=== PATIENT | female | born 1945 | race Caucasian/White ===

== ENCOUNTER 2024-10-30 15:26 | Emergency (ER) | payer MEDICARE, SELFPAY ==
[2024-10-30] VITALS (7 sets, daily range): BP systolic 78–136; BP diastolic 38–74; BMI 26.2
--- NOTE | 2024-10-30 16:03 | ED.GENMED ---
History of Present Illness
General
Chief Complaint: Fall
Source: patient
Exam Limitations: none
Time Seen by Provider: 10/30/24 15:30
Nursing documentation reviewed up to this point in time: agreed with
History of Present Illness
History of Present Illness:
Patient is an 79-year-old female with history depression who presents to the emergency department via EMS from [facility] after 2 unwitnessed falls today. Patient reports slipping on her bed last night/early this morning and landing
on her bottom. At that time�she denies any head strike. However�there was apparently a second incident today where patient was found on the ground after suspected fall from her bed. This fall was unwitnessed and patient was asleep at the time.
Per my assessment�patient repeatedly said states that she she is asymptomatic, feels fine, and would like to be discharged home. She specifically denies any headache, neck pain, back pain. She has no abdominal pain. No groin paresthesias, loss of
bowel/bladder control. No numbness/tingling in lower extremities or weakness.
Patient denies any recent fever or viral symptoms. No lightheadedness, chest pain, shortness of breath. No dysuria.
Patient states she struggles with depressive thoughts and has passive thoughts of suicide however states that she would never act on these thoughts.
Review of Systems
Review of Systems
Allergies reviewed?: Yes
All Other Systems: ROS reviewed and negative except as documented in HPI and ROS
Phy Exam
Physical Exam
Physical Exam:
Vitals: Patient's vital signs are stable. Afebrile
General: Patient is well appearing, no acute distress. Nontoxic appearing
Skin: Warm and dry, no rashes or lesions
Head: Normocephalic, atraumatic
Eyes: Sclera nonicteric. EOMs intact. Pupils equal round and reactive to light bilaterally. No nystagmus.
Throat: Protecting airway
Neck: Normal ROM, no cervical spine tenderness, no meningismus
Cardiac: Regular rate and rhythm, no murmurs. No chest wall tenderness.
Pulm: Normal respiratory effort, no wheezes, rales, rhonchi heard on exam
.
Abdomen: Abdomen soft and nontender.
Extremities: Bilateral lower extremities atraumatic and nontender with full range of motion. Ecchymosis noted to right shoulder without pain or any limited range of motion. Left shoulder with chronic deformity and limited abduction however
nontender. Palpable distal pulses bilaterally.
Neuro: AAOx3. Grossly intact.
Psychiatric: Normal affect.
Course
Orders/Labs/Results
Orders:
Orders
10/30/24 15:54
Electrocardiogram (*1) Urgent
Reason for Study: Other
Other Reason for Exam: unwitnessed fall
Cervical Spine wo Contrast CT [CT Cervical Spine W/o Iv Contr] Urgent
Comment:
Reason For Exam: unwitnessed fall
EKG- Treatment ONCE
10/30/24 15:55
CT Head W/o Iv Contrast Urgent
Comment:
Reason For Exam: unwitnessed fall
10/30/24 16:02
Crisis Consult Urgent
Reason for Consult: depression, passive SI
10/30/24 16:12
Complete Blood Count/With Diff Urgent
Comprehensive Metabolic Panel Urgent
10/30/24 16:16
Urinalysis Reflex To Culture Urgent
Date Specimen was Collected: 10/30/24
Time Specimen was Collected: 16:13
Urine Microscopic Reflex Cult Urgent
Urine Culture Urgent
MARYANA Source: U
Specimen Description:
Date Specimen was Collected: 10/30/24
Time Specimen was Collected: 16:13
10/30/24 19:09
Cephalexin Monohydrate [Keflex] 500 mg PO NOW STA
10/30/24 19:26
Fosfomycin [Monurol] 3 gm PO ONCE ONE
Abnormal Lab Results
10/30/24 10/30/24
16:12 16:16
RBC 2.88 L 10^6/uL
(4.20-5.40)
Hgb 7.6 L g/dL
(12.0-16.0)
Hct 24.0 L %
(37.0-47.0)
MCH 26.4 L pg
(27.0-31.0)
MCHC 31.7 L g/dL
(33.0-37.0)
RDW 14.8 H %
(11.5-14.5)
Plt Count 501 H 10^3/uL
(130-400)
Absolute Neuts (auto) 6.9 H 10^3/uL
(1.4-6.5)
Absolute Monos (auto) 0.9 H 10^3/uL
(0.1-0.6)
Lymphocytes % 13.1 L %
(20.5-51.1)
Monocytes % 10.1 H %
(1.7-9.3)
Sodium 130 L mmol/L
(135-145)
Potassium 3.4 L mmol/L
(3.5-5.1)
BUN 19 H mg/dl
(7-17)
Total Protein 5.5 L g/dl
(6.3-8.2)
Albumin 3.3 L g/dl
(3.5-5.0)
Urine Ketones 1+ A
(Negative)
Urine Nitrite (Reflex) Positive A
(Negative)
Leukocyte Esterase Rfl 1+ A
(Negative)
Urine WBC (Reflex) 26-30 A /HPF
(0-5)
Urine Bacteria (Reflex) Many A
(Negative)
Urine Albumin (Reflex) 1+ A
(Neg - Trace)
10/30/24 16:12
10/30/24 16:12
Vital Signs
Initial and Last Documented VS:
Initial Vital Signs
Temp Pulse Resp BP Pulse Ox
97.9 F 73 20 132/68 97
10/30/24 15:30 10/30/24 15:30 10/30/24 15:30 10/30/24 15:30 10/30/24 15:30
Last Documented Vital Signs
Temp Pulse Resp BP Pulse Ox
97.9 F 83 25 124/53 95
10/30/24 16:00 10/30/24 19:01 10/30/24 19:01 10/30/24 19:01 10/30/24 19:01
MDM/Problems Addressed
Differential Diagnosis Includes:
Not limited to: Acute dehydration, electrolyte abnormality, UTI, cardiac arrhythmia, etc.
MDM/Problems Addressed:
79-year-old female presenting after unwitnessed fall at [facility] 3 8 this morning. She has no complaints is not on any blood thinners. Vital signs as above. On exam�patient well-appearing, in no distress. She is alert and oriented without
any focal neurologic deficits. No evidence of head or neck trauma. Abdomen benign. She does have a chronic deformity of her left shoulder after fracture about 1 year ago also did note a ecchymosis to her right shoulder. Bilateral lower
extremities atraumatic tender with full range of motion.
Given unwitnessed nature of fall�will obtain labs, EKG, UA. Will check head CT, cervical spine CT. Will obtain x-ray of right shoulder given new ecchymosis and mild tenderness.
Update: Labs revealed anemia with hemoglobin of 7.6 which patient states is chronic. She states she follows with her court manager and her hemoglobin typically is around 8. She has had lengthy workup for GI bleeding which has been negative and she
denies any recent changes in stools. She denies any lightheadedness, shortness of breath or dizziness. Chemistry reveals mild hyponatremia. EKG not. CT head/cervical spine about acute traumatic injuries. Urine does appear infected, positive
nitrate, 1+ leukocyte esterase, and 26�30 WBCs with many bacteria�this was a catheterized specimen.
Patient declines x-ray of right shoulder since she has no pain and is aware of possible missed diagnoses.
Ultimately�no evidence of acute traumatic injuries on exam. Lab abnormalities including hemoglobin appears stable for patient and she has follow-up with her primary care provider tomorrow. She did receive IV fluids. Offered admission, however
patient is adamant that she feels completely at her baseline and would prefer to be discharged home. Will start patient on antibiotic for UTI. She has very questionable allergy to penicillin with not collection of what reaction this was�will give
dose of fosfomycin in ED. Patient discharged home with daughter in stable condition. Strict return precautions discussed.
Chronic conditions affecting care:
N/A
Acute Exacerbation and/or Progression of Chronic Illness:
N/A
*Radiology
Radiology exam reviewed: radiology read reviewed
*Pulse Oximetry
SaO2: 97
Oxygen Mode of Delivery: Room air
Patient hypoxic: no
*EKG
Interpreted by ED Provider?: Yes
EKG Intrepretation Date: 10/30/24
Interpretation: abnormal
Comparison EKG: no comparison EKG present
Heart Rate: 80
Rate: normal
Rhythm: sinus
[place]: normal axis
Interval: long QT
QRS Pattern: normal QRS
Ischemia: no ischemia
*Inverted Block Operator Interpretation
Rate: normal
Interpretation: normal
Heart Rate: 70
Rhythm: sinus
*Critical Care Note
Total Time (30-74mins, 75-104mins- exclusive of procedures): Not Applicable
ED Attending Note
-
Portions of this chart may have been created with voice recognition software.� Occasional wrong word or��sound alike� substitutions may have occurred due to the inherent limitations of voice recognition software.
Discharge Plan
Departure
Patient Disposition: Home (Routine Discharge)
Date of Disposition: 10/30/24
Time of Disposition: 19:10
Patient with high blood pressure during this ER visit?: Yes
Condition: Good
Discharge Problem:
Unwitnessed fall, Acute UTI, Anemia
Instructions: Urinary tract infection in adults - ED (DC), Anemia in adults, possibly from low iron - ED (DC), BLOOD PRESSURE
Referrals:
Beni Mcneil MD [Family Provider, Family Practice] - Follow up in 5-7 days
Activity Restrictions/Additional Instructions:
RETURN TO THE EMERGENCY DEPARTMENT WITH ANY FEVERS, ABDOMINAL PAIN, NAUSEA/VOMITING, WEAKNESS OR LIGHTHEADEDNESS, DARK OR BLOODY STOOLS, SHORTNESS OF BREATH, WORSENING IN CURRENT SYMPTOMS, OR ANY OTHER CONCERNS
- As discussed�your imaging of your head and neck showed no acute traumatic injuries. However there was a small meningioma noted on the head CT. Please follow-up with your primary care provider in regards to this and determine if any further
imaging is necessary.
Your lab work revealed significant anemia with a hemoglobin of 7.6�which you state is around your baseline. Please follow closely with your primary care for repeat lab work as you may require blood transfusion.
- Your urine showed evidence of infection. You were given an oral dose of antibiotics in the emergency department.
- Follow-up with your primary care provider for further evaluation/management to ensure that your symptoms are improving.
Monitor your symptoms closely and return to the emergency department with any acute worsening/new symptoms or any other concerns
Interventions
Interventions:
*Risk Screen - Suicide Last Done: 10/30/24 15:37
*General Assessment Last Done: 10/30/24 15:37
*Neglect/Abuse Screening Last Done: 10/30/24 15:37
*ED- Fall Risk Assessment Last Done: 10/30/24 15:37
*ED COVID-19 Vaccine History Last Done: 10/30/24 15:37
*Nursing Disposition Last Done: 10/30/24 19:53
ED-Musculoskeletal Assessment Last Done: 10/30/24 15:37
ED- Neurological Assessment Last Done: 10/30/24 15:37
ED-Skin Assessment Last Done: 10/30/24 16:37
Discharge Date and Time
Discharge Date/Time: 10/30/24 19:54
Print Language: LAO
[2024-10-30 16:24] LABS: Hematocrit 24.0 % (37.0-47.0); Hemoglobin 7.6 g/dL (12.0-16.0); Mean Corp Hgb Conc. 31.7 g/dL (33.0-37.0); Mean Corpuscular Volume 83.3 fL (81.0-99.0); Nucleated Red Blood Cells % 0 %; Platelet Count 501 10^3/uL (130-400); Red Cell Dist. Width 14.8 % (11.5-14.5)
[2024-10-30 16:36] LABS: ALT (SGPT) < 10 U/L (0-35); AST (SGOT) 27 U/L (14-36); Albumin 3.3 g/dl (3.5-5.0); Alkaline Phosphatase 108 U/L (38-126); Blood Urea Nitrogen 19 mg/dl (7-17); Calcium 8.4 mg/dl (8.4-10.2); Carbon Dioxide 28 mmol/L (22-30); Chloride 99 mmol/L (98-107); Estimated Creatinine Clearance 66 ml/min; Glucose 71 mg/dl (70-99); Potassium 3.4 mmol/L (3.5-5.1); Sodium 130 mmol/L (135-145); Total Protein 5.5 g/dl (6.3-8.2); eGFR > 60.00
[2024-10-30 16:42] LABS: Urine Character Clear (Clear)
[2024-10-30 16:50] LABS: Urine Red Blood Cell 0-2 /HPF (0-2); Urine Squamous Cell 0-2 /LPF (Few); Urine White Cell 26-30 /HPF (0-5)
[2024-10-30] MEDS: MONUROL 3 GM PO (19:35)
== END 2024-10-30 19:54 | disposition home or self-care (01) ==
LOC: EMR 15:26
PROVIDERS: Physician Assistant; EMERGENCY PHYSICIAN Emergency Medicine; FAMILY PHYSICIAN Family Medicine
DX: N39.0 Urinary tract infection, site not specified (principal); D64.9 Anemia, unspecified; E87.1 Hypo-osmolality and hyponatremia; R03.0 Elevated blood-pressure reading, without diagnosis of hypertension; F32.A Depression, unspecified
CPT/HCPCS: 99284; 70450; 72125; 80053; 81003; 81015; 85025; 87077; 87086; 87186; 93005

== ENCOUNTER 2024-11-06 16:51 | Inpatient (IN) | payer MEDICARE, SELFPAY ==
[2024-11-05] VITALS (8 sets, daily range): BP systolic 97–115; BP diastolic 38–81; BMI 25.2; BMI 25.7
[2024-11-05 19:00] LABS: Hematocrit 25.5 % (37.0-47.0); Hemoglobin 8.3 g/dL (12.0-16.0); Mean Corp Hgb Conc. 32.5 g/dL (33.0-37.0); Mean Corpuscular Volume 80.4 fL (81.0-99.0); Nucleated Red Blood Cells % 0 %; Platelet Count 503 10^3/uL (130-400); Red Cell Dist. Width 14.8 % (11.5-14.5)
[2024-11-05 19:15] LABS: ALT (SGPT) < 10 U/L (0-35); AST (SGOT) 21 U/L (14-36); Albumin 3.7 g/dl (3.5-5.0); Alkaline Phosphatase 127 U/L (38-126); Blood Urea Nitrogen 29 mg/dl (7-17); Calcium 9.0 mg/dl (8.4-10.2); Carbon Dioxide 29 mmol/L (22-30); Chloride 91 mmol/L (98-107); Estimated Creatinine Clearance 40 ml/min; Glucose 82 mg/dl (70-99); Potassium 3.7 mmol/L (3.5-5.1); Sodium 126 mmol/L (135-145); Total Protein 5.9 g/dl (6.3-8.2); eGFR 56.60
--- NOTE | 2024-11-05 21:41 | ED.GENMED ---
History of Present Illness
<Vannesa Lafleur ADMINISTRATIVE ASSISTANT OFFICE MANAGER - Last Filed: 11/05/24 23:16>
General
Chief Complaint: Fall
Source: patient and ambulance crew
Exam Limitations: altered mental status
Time Seen by Provider: 11/05/24 20:47
Nursing documentation reviewed up to this point in time: agreed with
History of Present Illness
History of Present Illness:
79-year-old female with history of prolapsed uterus, anxiety/depression, lives in independent living at [place]. She has had multiple falls in the past few days and was seen here on 10/30 for a fall and diagnosed with a urinary tract infection and
given a dose of fosfomycin. She went back to [place] and according to EMS they told them that she had 2 falls today. Patient admits that she fell twice today, The first fall happened at home when she tripped over a chair. She does not recall
significant pain from the falls and denies any major injuries.
The patient has no chest pain, difficulty breathing, or abdominal pain. She has chronic pain in her knees.
EMS reports that the people at [facility] are trying to move her to a more observational area due to her numerous falls recently.
Past History
<Vannesa Lafleur, ADMINISTRATIVE ASSISTANT OFFICE MANAGER - Last Filed: 11/05/24 23:16>
Past History
ED Past Medical History: Psychiatric (Anxiety/depression) and Other (She does have a prolapsed uterus)
Review of Systems
<Vannesa Lafleur ADMINISTRATIVE ASSISTANT OFFICE MANAGER - Last Filed: 11/05/24 23:16>
Review of Systems
Allergies reviewed?: Yes
All Other Systems: ROS reviewed and negative except as documented in HPI and ROS
Respiratory: Denies trouble breathing
Cardiac: Denies chest pain
ABD/GI: Denies abdominal pain, nausea, vomiting or diarrhea
: Denies dysuria
Musculoskeletal: Reports joint pain (Chronic bilateral knee pain)
Phy Exam
<Vannesa Lafleur, ADMINISTRATIVE ASSISTANT OFFICE MANAGER - Last Filed: 11/05/24 23:16>
Physical Exam
Physical Exam:
GENERAL: No acute distress. A&Ox3.
CONSTITUTIONAL: Afebrile.
EYES: clear, conjunctivae normal
ENMT: moist mucus membranes, Pharynx nl
RESPIRATORY: Regular respirations, nonlabored, lungs clear.
CARDIOVASCULAR: Regular rate and rhythm, no murmurs, no rubs.
GI: Soft, nontender, normal BS
MUSCULOSKELETAL: No spinal bony tenderness. Moving all extremities well, bilateral knee pain which she says is chronic. Moves with ease. Well perfused.
SKIN: Warm, dry, pink, mild old ecchymosis under left eye, small area on right breast, reddish ecchymosis on right buttock. Both lower extremities are warm and erythematous, right greater than left
PSYCH: Normal mood and affect. She does have hallucinations, she points to the corner of the room and says do see that lady over there with the blonde hair when there is no one there. At other times she seems very cogent and oriented. Well kept,
interactive.
NEUROLOGIC: Awake, alert and oriented. No focal neurological deficits
Course
<Vannesa Lafleur, ADMINISTRATIVE ASSISTANT OFFICE MANAGER - Last Filed: 11/05/24 23:16>
Orders/Labs/Results
Orders:
Orders
11/05/24 18:37
CMP [Comprehensive Metabolic Panel] Urgent
Complete Blood Count/With Diff Urgent
Ferritin Urgent
Comment: ADD ON
Folate Urgent
Comment: ADD ON
Free T4 Urgent
Iron Urgent
Comment: ADD ON
Serum Osmolality Urgent
Comment: ADD ON
TSH Reflex To Free T4 Urgent
Comment: ADD ON
Total Iron Binding Urgent
Comment: ADD ON
Vitamin B12 Urgent
Comment: ADD ON
11/05/24 20:50
Add On- LAB Urgent
Tests Added?: TSH reflex T4
11/05/24 22:02
Osmolality, Random Urine Urgent
Date Specimen was Collected: 11/05/24
Time Specimen was Collected: 20:52
Urinalysis Reflex To Culture Urgent
Date Specimen was Collected: 11/05/24
Time Specimen was Collected: 20:52
Urine Microscopic Reflex Cult Urgent
Urine Sodium Urgent
Date Specimen was Collected: 11/05/24
Time Specimen was Collected: 20:52
Urine Culture Urgent
MARYANA Source: U
Specimen Description:
Date Specimen was Collected: 11/05/24
Time Specimen was Collected: 20:52
11/05/24 22:07
CeFAZolin 1 GRAM [Ancef] 1 gram in 5 ml IV NOW
11/05/24 22:20
Add On- LAB Stat
Tests Added?: serum osmolality
11/05/24 22:21
Add On- LAB Stat
Tests Added?: B12, ferritin, folate, TIBC, iron
11/05/24 22:23
Admit/Transfer Patient As Directed
Co-Sign Provider:
Level of Care: Observation services
Assign to:: Medical/Surgical
Physician / Group: wally
Diagnosis: cellultis
Reason for Hospitalization: cellulitis
Expected length of stay greater than two midnights?: Yes
ELOS- Estimated Length of Stay in days: 3
I certify the patient meets the requirements for IP care: Yes
PRN Pain Medication Management As Directed
May give lesser potent ordered pain med per pt: Yes
preference::
Protocol:: Medication orders for pain may be administered in a
manner that supports deferring to patient preference
when the pt is:
- Requesting an ordered lesser potent pain medication.
Least to most potent pain medications are defined
as: acetaminophen < NSAID < tramadol < opioids
(morphine, oxycodone, hydromorphone).
- Requesting a lesser dose of the same medication IF
ORDERED.
- Requesting a less intrusive route of administration
if both routes are prescribed by the provider (PO <
IV).
11/05/24 22:24
Code Status As Directed
Resuscitation Status: Full Code
Abnormal Lab Results
11/05/24 11/05/24
18:37 22:02
WBC 12.3 H 10^3/uL
(4.8-10.8)
RBC 3.17 L 10^6/uL
(4.20-5.40)
Hgb 8.3 L g/dL
(12.0-16.0)
Hct 25.5 L %
(37.0-47.0)
MCV 80.4 L fL
(81.0-99.0)
MCH 26.2 L pg
(27.0-31.0)
MCHC 32.5 L g/dL
(33.0-37.0)
RDW 14.8 H %
(11.5-14.5)
Plt Count 503 H 10^3/uL
(130-400)
Abs Immat Gran (auto) 0.1 H 10^3/uL
(0-0.05)
Absolute Neuts (auto) 9.3 H 10^3/uL
(1.4-6.5)
Absolute Monos (auto) 1.2 H 10^3/uL
(0.1-0.6)
Immature Gran % 0.7 H %
(0-0.5)
Neutrophils % 75.5 H %
(42.2-75.2)
Lymphocytes % 12.1 L %
(20.5-51.1)
Monocytes % 10.1 H %
(1.7-9.3)
Sodium 126 L mmol/L
(135-145)
Chloride 91 L mmol/L
(98-107)
BUN 29 H mg/dl
(7-17)
Serum Osmolality 270 L mOsm/kg
(275-300)
Iron 27 L ug/dl
(37-170)
% Saturation 8 L %
(20-50)
Alkaline Phosphatase 127 H U/L
(38-126)
Total Protein 5.9 L g/dl
(6.3-8.2)
TSH (Reflex) 0.11 L uIU/ml
(0.47-4.68)
Urine Nitrite (Reflex) Positive A
(Negative)
Leukocyte Esterase Rfl 1+ A
(Negative)
Urine WBC (Reflex) 60-70 A /HPF
(0-5)
Urine Bacteria (Reflex) Many A
(Negative)
Urine Albumin (Reflex) 1+ A
(Neg - Trace)
11/05/24 18:37
11/05/24 18:37
Vital Signs
Initial and Last Documented VS:
Initial Vital Signs
Temp Pulse BP Pulse Ox
98.2 F 70 107/81 97
11/05/24 18:14 11/05/24 18:14 11/05/24 18:14 11/05/24 18:14
Last Documented Vital Signs
Temp Pulse Resp BP Pulse Ox
98.2 F 72 19 107/81 97
11/05/24 18:14 11/05/24 18:30 11/05/24 18:30 11/05/24 18:18 11/05/24 21:43
<Dada Kyle, DO - Last Filed: 11/05/24 22:16>
Orders/Labs/Results
Orders:
Orders
11/05/24 18:37
CMP [Comprehensive Metabolic Panel] Urgent
Complete Blood Count/With Diff Urgent
Ferritin Urgent
Comment: ADD ON
Folate Urgent
Comment: ADD ON
Free T4 Urgent
Iron Urgent
Comment: ADD ON
Serum Osmolality Urgent
Comment: ADD ON
TSH Reflex To Free T4 Urgent
Comment: ADD ON
Total Iron Binding Urgent
Comment: ADD ON
Vitamin B12 Urgent
Comment: ADD ON
11/05/24 20:50
Add On- LAB Urgent
Tests Added?: TSH reflex T4
11/05/24 22:02
Osmolality, Random Urine Urgent
Date Specimen was Collected: 11/05/24
Time Specimen was Collected: 20:52
Urinalysis Reflex To Culture Urgent
Date Specimen was Collected: 11/05/24
Time Specimen was Collected: 20:52
Urine Microscopic Reflex Cult Urgent
Urine Sodium Urgent
Date Specimen was Collected: 11/05/24
Time Specimen was Collected: 20:52
Urine Culture Urgent
MARYANA Source: U
Specimen Description:
Date Specimen was Collected: 11/05/24
Time Specimen was Collected: 20:52
11/05/24 22:07
CeFAZolin 1 GRAM [Ancef] 1 gram in 5 ml IV NOW
11/05/24 22:20
Add On- LAB Stat
Tests Added?: serum osmolality
11/05/24 22:21
Add On- LAB Stat
Tests Added?: B12, ferritin, folate, TIBC, iron
11/05/24 22:23
Admit/Transfer Patient As Directed
Co-Sign Provider:
Level of Care: Observation services
Assign to:: Medical/Surgical
Physician / Group: wally
Diagnosis: cellultis
Reason for Hospitalization: cellulitis
Expected length of stay greater than two midnights?: Yes
ELOS- Estimated Length of Stay in days: 3
I certify the patient meets the requirements for IP care: Yes
PRN Pain Medication Management As Directed
May give lesser potent ordered pain med per pt: Yes
preference::
Protocol:: Medication orders for pain may be administered in a
manner that supports deferring to patient preference
when the pt is:
- Requesting an ordered lesser potent pain medication.
Least to most potent pain medications are defined
as: acetaminophen < NSAID < tramadol < opioids
(morphine, oxycodone, hydromorphone).
- Requesting a lesser dose of the same medication IF
ORDERED.
- Requesting a less intrusive route of administration
if both routes are prescribed by the provider (PO <
IV).
11/05/24 22:24
Code Status As Directed
Resuscitation Status: Full Code
Abnormal Lab Results
11/05/24 11/05/24
18:37 22:02
WBC 12.3 H 10^3/uL
(4.8-10.8)
RBC 3.17 L 10^6/uL
(4.20-5.40)
Hgb 8.3 L g/dL
(12.0-16.0)
Hct 25.5 L %
(37.0-47.0)
MCV 80.4 L fL
(81.0-99.0)
MCH 26.2 L pg
(27.0-31.0)
MCHC 32.5 L g/dL
(33.0-37.0)
RDW 14.8 H %
(11.5-14.5)
Plt Count 503 H 10^3/uL
(130-400)
Abs Immat Gran (auto) 0.1 H 10^3/uL
(0-0.05)
Absolute Neuts (auto) 9.3 H 10^3/uL
(1.4-6.5)
Absolute Monos (auto) 1.2 H 10^3/uL
(0.1-0.6)
Immature Gran % 0.7 H %
(0-0.5)
Neutrophils % 75.5 H %
(42.2-75.2)
Lymphocytes % 12.1 L %
(20.5-51.1)
Monocytes % 10.1 H %
(1.7-9.3)
Sodium 126 L mmol/L
(135-145)
Chloride 91 L mmol/L
(98-107)
BUN 29 H mg/dl
(7-17)
Serum Osmolality 270 L mOsm/kg
(275-300)
Iron 27 L ug/dl
(37-170)
% Saturation 8 L %
(20-50)
Alkaline Phosphatase 127 H U/L
(38-126)
Total Protein 5.9 L g/dl
(6.3-8.2)
TSH (Reflex) 0.11 L uIU/ml
(0.47-4.68)
Urine Nitrite (Reflex) Positive A
(Negative)
Leukocyte Esterase Rfl 1+ A
(Negative)
Urine WBC (Reflex) 60-70 A /HPF
(0-5)
Urine Bacteria (Reflex) Many A
(Negative)
Urine Albumin (Reflex) 1+ A
(Neg - Trace)
11/05/24 18:37
11/05/24 18:37
Vital Signs
Initial and Last Documented VS:
Initial Vital Signs
Temp Pulse BP Pulse Ox
98.2 F 70 107/81 97
11/05/24 18:14 11/05/24 18:14 11/05/24 18:14 11/05/24 18:14
Last Documented Vital Signs
Temp Pulse Resp BP Pulse Ox
98.2 F 72 19 107/81 97
11/05/24 18:14 11/05/24 18:30 11/05/24 18:30 11/05/24 18:18 11/05/24 21:43
<Vannesa Lafleur ADMINISTRATIVE ASSISTANT OFFICE MANAGER - Last Filed: 11/05/24 23:16>
MDM/Problems Addressed
Differential Diagnosis Includes:
Dehydration, electrolyte imbalance, cognitive impairment, UTI
Lower extremity redness: Cellulitis
MDM/Problems Addressed:
79-year-old female with history of prolapsed uterus, anxiety/depression, lives in independent living at [place]. She has had multiple falls in the past few days and was seen here on 10/30 for a fall and diagnosed with a urinary tract infection and
given a dose of fosfomycin. She went back to [facility] and according to EMS they told them that she had 2 falls today. Patient admits that she fell twice today, The first fall happened at home when she tripped over a chair. She does not recall
significant pain from the falls and denies any major injuries.
The patient has no chest pain, difficulty breathing, or abdominal pain. She has chronic pain in her knees.
EMS reports that the people at [facility] are trying to move her to a more observational area due to her numerous falls recently.
CBC: Mild leukocytosis, platelets 503, most likely from hemoconcentration/dehydration hemoglobin 8.3 which is improved from 7.6 on 10/30
CMP: BUN 29, kidney functions are normal, sodium 126
UA pending
9:45 PM:
Elderly female with numerous falls over the past several days, recently treated for UTI, now with hyponatremia
Both her lower legs below the knees are red, warm, nontender. Distal neurovascular intact
Pt states 'allergy' to PCN is 'canker sores in my mouth' not a true allergy. Ancef ordered
10:00 p.m.
Case discussed with Dr. Kyle who examined pt. Agrees with assessment and plan. Cellulitis bilateral lower extremities.
Plan: Admit: Multiple falls, hyponatremia, bilateral LE cellulitis
Hospitalist notified of admission.
<Vannesa Lafleur, ADMINISTRATIVE ASSISTANT OFFICE MANAGER - Last Filed: 11/05/24 23:16>
*Pulse Oximetry
SaO2: 97
Oxygen Mode of Delivery: Room air
Patient hypoxic: no
*Critical Care Note
Total Time (30-74mins, 75-104mins- exclusive of procedures): Not Applicable
ED Attending Note
<Vannesa Lafleur ADMINISTRATIVE ASSISTANT OFFICE MANAGER - Last Filed: 11/05/24 23:16>
-
Portions of this chart may have been created with voice recognition software.� Occasional wrong word or��sound alike� substitutions may have occurred due to the inherent limitations of voice recognition software.
<Dada Kyle DO - Last Filed: 11/05/24 22:16>
ED Attending Note
Patient seen and examined by attending physician: Yes
ED Attending Note:
I reviewed and agree with history and treatment plan by Martita Lafleur NP. My exam revealed 79-year-old female with bilateral lower extremity erythema. Possible hallucinations stating she is seeing someone in the room. Patient has hyponatremia will
admit to hospitalist for further treatment of hyponatremia and bilateral cellulitis of lower legs.
Discharge Plan
Departure
Patient Disposition: Admit
Date of Disposition: 11/05/24
Time of Disposition: 22:08
Admit to: Med/Surg
Presentation/result/management discussed w/ accepting MD/DO: Hospitalist
Condition: Fair
Discharge Problem:
Cellulitis of both lower extremities, Multiple falls, Acute hyponatremia, Acute dehydration
Interventions
Interventions:
*Risk Screen - Suicide Last Done: 11/05/24 18:21
*General Assessment Last Done: 11/05/24 18:21
*Neglect/Abuse Screening Last Done: 11/05/24 18:21
*ED- Fall Risk Assessment Last Done: 11/05/24 18:21
*ED COVID-19 Vaccine History Last Done: 11/05/24 18:21
ED-Musculoskeletal Assessment Last Done: 11/05/24 18:21
ED- Neurological Assessment Last Done: 11/05/24 18:21
ED-Skin Assessment Last Done: 11/05/24 18:21
--- NOTE | 2024-11-05 22:05 | HPS.HSE ---
Addendum entered and electronically signed by Mahendra Clement MD 11/05/24 22:48:
see update note for addendum
Original Note:
Family Physician
-
Family Physician: Beni Mcneil
Chief Complaint
-
falls
History of Present Illness
79-year-old female with history of prolapsed uterus, anxiety/depression, HTN,HLD presented to us with frequent fall. patient stated b/l LE weakness which is causing her to fall. today she tripped over something and fell. she uses walker at home. she
is complaining of b/l knee pain and well as redness to b/l LE. .she lives in independent living at [place]. She has had multiple falls in the past few days and was seen here on 10/30 for a fall and diagnosed with a urinary tract infection and given a
dose of fosfomycin.The patient has no chest pain, difficulty breathing, or abdominal pain. Patient denied any headache, dizzy or syncope. Patient denied any fever, chill. Patient denied abdominal pain, nausea, vomiting or diarrhea. Patient
denied dysuria hematuria
IV Ancef in ER. Urine osmolality, TSH T4, UA, urine sodium pending. Admitting for further management
Medical History
Past Medical History
Past Medical History: Reports Other
Additional Past Medical History:
Hypertension, hyperlipidemia, GERD, depression, insomnia
Past Surgical History: Reports Other
Additional Past Surgical History:
Back surgery, toe surgery, appendectomy,
Social History
Tobacco: Former Smoker
Alcohol: Occasional
Drug: None
Personal: Single
Living: Alone
Family History
Family History: Not pertinent
Allergies / Home Medications
Allergies reflects when Allergies were last updated in [facility].
Home Medications with original date entered in [facility]
Allergy/Medication List:
Allergies
Allergy/AdvReac Type Severity Reaction Status Date / Time
Penicillins Allergy Unknown Verified 11/05/24 18:20
Review of Systems
-
Constitutional: Reports No Symptoms
EENT: Reports No Symptoms
Respiratory: Reports No Symptoms
Cardiac: Reports No Symptoms
Abdomen/GI: Reports No Symptoms
: Reports No Symptoms
Musculoskeletal: Reports No Symptoms
Skin: Reports No Symptoms
Neurological: Reports Weakness (Lower extremity)
Endocrine: Reports No Symptoms
Hematologic/Lymphatic: Reports No Symptoms
Psych: Reports No Symptoms
Physical Exam
Vital Signs
Vital Signs
Temp Pulse Resp BP Pulse Ox
98.2 F 72 19 107/81 97
11/05/24 18:14 11/05/24 18:30 11/05/24 18:30 11/05/24 18:18 11/05/24 21:43
Physical Exam
General: Well Developed, Well Nourished and No Apparent Distress
HEENT: NormoCephalic, Moist mucous membranes and Atraumatic
Respiratory: Clear
Cardiac: S1/S2 and Regular Rhythm; No Murmur or Rub
GI: Soft, Non Tender, Non Distended and Normal Bowel Sounds; No Organomegaly
Rectal: Deferred by Provider
Musculoskeletal: No Clubbing, No Cyanosis and No Edema
Skin: Rash and Other (Bilateral lower extremities redness, warm to touch)
Neuro: AO x 3 and Nonfocal/grossly intact
Psych: Calm
Laboratory Results
-
11/05/24 18:37
11/05/24 18:37
Laboratory Results
Total Bilirubin 0.4 mg/dl (0.2-1.3) 11/05/24 18:37
AST 21 U/L (14-36) 11/05/24 18:37
ALT < 10 U/L (0-35) 11/05/24 18:37
Alkaline Phosphatase 127 U/L (38-126) H 11/05/24 18:37
Data Reviewed
-
Lab Data: Labs Reviewed by me
Impression/Plan
-
# Frequent falls/generalized weakness/chronic knee pain
- PT/OT consulted
-obtain orthostatics
# Acute hyponatremia likely hypovolemic
- Sodium 126
- Obtain urine osmolality, urine sodium, serum osmolality
# Bilateral lower extremity cellulitis
- WBC 12.3 patient afebrile
- Ancef continued
# Anemia likely chronic
- Hemoglobin 8.3
- No active bleed
- Obtain iron panel
# Essential hypertension
- Norvasc continued
- Hold HCTZ
- Nebivolol continued
#GERD
- Pantoprazole continued
#Hyperlipidemia
- Add atorvastatin
#Depression/anxiety
- Bupropion, venlafaxine continued
- Ambien as needed for insomnia
DVT prophylaxis
- Lovenox
CODE STATUS
- Full code
[2024-11-05 22:11] LABS: Urine Character Clear (Clear)
[2024-11-05 22:21] LABS: Urine Red Blood Cell 0-2 /HPF (0-2); Urine White Cell 60-70 /HPF (0-5)
--- NOTE | 2024-11-05 22:35 | W.PN.UPDATE ---
Update Note
Progress Note Update
I saw and examined the patient.
The MUSEUM EXHIBIT DESIGNER Erum note was reviewed and I agree with the note.
Comment: 79 y/o F, presenting to [facility] for recurrent falls. Patient presented to ER 10/30 with fall and UTI - treated with fosfomycin. Since return to [facility], has had 2 further falls, both mechanical in nature. No other complaints other than chronic
knee pain.
In ER, she would found to have hyponatremia and also concern for RLE>LLE edema concerning for DVT (US pending) vs cellulitis - IV Ancef given.
Exam:
General: Well Developed, Well Nourished and No Apparent Distress
HEENT: Normocephalic, Moist mucous membranes and Atraumatic
Respiratory: Clear
Cardiac: S1/S2 and Regular Rhythm; No Murmur or Rub
GI: Soft, Non Tender, Non Distended and Normal Bowel Sounds; No Organomegaly
Rectal: Deferred by Provider
Musculoskeletal: No Clubbing, No Cyanosis and No Edema
Skin: Rash and Other (Bilateral lower extremities redness, warm to touch)
Neuro: AO x 3 and Nonfocal/grossly intact
Psych: Calm
Plan: Await DVT study. continue empiric IV Ancef. Hyponatremia workup; IVF, trend labs. Hold HCTZ. PT/OT. check orthostatics. Rest of plan as per MUSEUM EXHIBIT DESIGNER note.
[2024-11-05 22:43] LABS: Iron 27 ug/dl (37-170)
[2024-11-05 22:52] LABS: Total Iron Binding Capacity 333 ug/dl (265-497)
[2024-11-05 23:17] LABS: Ferritin 31.5 ng/ml (11.1-264.0)
[2024-11-05] MEDS: ANCEF 5 IV (23:30)
[2024-11-05 23:48] LABS: Folate > 20.0 ng/ml (2.76-20); Vitamin B12 404 pg/ml (239-931)
[2024-11-06] VITALS (7 sets, daily range): BP systolic 103–143; BP diastolic 58–80; PULSE 67–104; O2SAT 93
[2024-11-06] MEDS: NSS 1000 IV ×2 (00:16→14:11)
[2024-11-06] MEDS: NORCO 7.5/325 1 TABLET PO (00:31)
[2024-11-06] MEDS: AMBIEN 10 MG PO ×2 (00:32→21:27)
--- NOTE | 2024-11-06 02:52 | DOWNTIME ---
There was a [facility] Client [employer]ology Specialist Downtime on 11/06/2024 from 0100 to 11/06/2024 at 0215. Downtime documentation of patient's care, including medication administrations, has been reconciled in the electronic record per guidelines. Refer to the
patient's paper chart under the miscellaneous tab to see printed paper medication records and downtime forms.
[2024-11-06 08:18] LABS: Hematocrit 25.8 % (37.0-47.0); Hemoglobin 8.4 g/dL (12.0-16.0); Mean Corp Hgb Conc. 32.6 g/dL (33.0-37.0); Mean Corpuscular Volume 80.6 fL (81.0-99.0); Platelet Count 499 10^3/uL (130-400); Red Cell Dist. Width 14.7 % (11.5-14.5)
[2024-11-06] MEDS: BYSTOLIC 5 MG PO (08:18)
[2024-11-06] MEDS: ANCEF 10 IV ×2 (08:18→16:26)
[2024-11-06] MEDS: WELLBUTRIN XL (24 hour extended release) 300 MG PO (08:18)
[2024-11-06] MEDS: PROTONIX 40 MG PO (08:18)
[2024-11-06] MEDS: NORVASC 2.5 MG PO (08:19)
[2024-11-06] MEDS: EFFEXOR XR 75 MG PO (08:19)
[2024-11-06 09:10] LABS: Blood Urea Nitrogen 20 mg/dl (7-17); Calcium 8.6 mg/dl (8.4-10.2); Carbon Dioxide 32 mmol/L (22-30); Chloride 95 mmol/L (98-107); Estimated Creatinine Clearance 46 ml/min; Glucose 77 mg/dl (70-99); Potassium 3.7 mmol/L (3.5-5.1); Sodium 132 mmol/L (135-145); eGFR > 60.00
--- NOTE | 2024-11-06 11:28 | CM ---
Patient seen bedside, initial assessment completed. Patient is a 79-year-old female with history of prolapsed uterus, anxiety/depression, HTN,HLD presented to us with frequent fall. Patient stated b/l LE weakness which is causing her to fall.
Patient resides at [facility] in independent living w/ her 14 year old dog. Patient has a 2nd floor apartment, 1 step to enter. Patient is independent w/ RW. Has additional grab bar and a shower chair in the bathroom. Patient is independent w/ ADLs
and personal care. Patient was at [facility] for rehab last year, prev known to [facility] .
PCP: Beni Mcneil
Pharmacy: [facility]
Patient is admitted obs. KEBEDE form verbally reviewed, copy provided, copy on chart
Therapy assessed patient and is recommending SNF as she has weakness in her legs. Per OT, patient wants to d/c home [facility] and is only staying in independent living for her dog.
Plan: SNF recommended
[2024-11-06] MEDS: NORCO 5/325 1 TABLET PO (13:34)
--- NOTE | 2024-11-06 16:53 | W.PN.HOSP.TC ---
Today's Communication/Plan
-
abx for UTI and cellulitis
Assessment / Plan
Assessment / Plan
79F with prolapsed uterus, anxiety/depression, HTN, HLD, pw/ fall, foudn to have hyponatremia and cellulitis.
1. Frequent falls/generalized weakness/chronic knee pain
- PT/OT consulted
- obtain orthostatics
2. Acute hyponatremia likely hypovolemic
- Sodium 126 improved to 132 after IVF
- Obtain urine osmolality 325, urine sodium 41, serum osm 270
3. UTI
1+ LE, 60 WBC, UCx pending
ancef as below
3. Bilateral lower extremity cellulitis
treating with IV Ancef
4. Anemia likely chronic
- Hemoglobin 8.3, stable
- No active bleed
- iron panel: iron 27, TIBC 333, %sat 8, ferritin 31.5. will start oral iron supplementation
5. Essential hypertension
- Norvasc, nebivolol
- Hold HCTZ due to Na
6. GERD
- Pantoprazole
7. Hyperlipidemia
- atorvastatin
8. Depression/anxiety
- Bupropion, venlafaxine
- Ambien as needed for insomnia
DVT prophylaxis
- Lovenox
Anticipated Discharge: 24 - 48 hours
Subjective/Interval History
-
Date of Service: November 06, 2024
No acute issues
Objective Data
-
Labs:
Laboratory Results
11/06/24
07:21
WBC 9.7
Hgb 8.4 L
Hct 25.8 L
Plt Count 499 H
Sodium 132 L
Potassium 3.7
Chloride 95 L
Carbon Dioxide 32 H
BUN 20 H
Creatinine 0.8
Glucose 77
Calcium 8.6
Vital Signs:
Vital Signs
Temp Pulse Resp BP Pulse Ox
98.5 F 75 12 124/63 95
11/06/24 07:00 11/06/24 08:19 11/06/24 07:00 11/06/24 08:19 11/06/24 11:33
Review of Systems
-
All other systems: Reviewed and negative
Physical Exam
-
General: No Apparent Distress
HEENT: Moist Mucous Membranes, Anicteric and PERRLA
Respiratory: Clear to Auscultation; Negative Wheezes, Rales or Rhonchi
Cardiac: Regular Rhythm and S1/S2; Negative Murmur, Rub or Gallop
GI: Soft, Nontender, Nondistended and Normal Bowel Sounds
Musculoskeletal: No Edema
Skin: Warm, Dry and Rash
Neuro: Awake and AO x 3
Hematologic / Lymphatic: No Lymphadenopathy
Psych: Calm
Data Reviewed
-
Ultrasound: Report Reviewed by me
Labs: Labs Reviewed by me
[2024-11-06] MEDS: LOVENOX 40 MG SC (17:44)
[2024-11-06] MEDS: LIPITOR 40 MG PO (21:05)
[2024-11-06] MEDS: NEURONTIN 600 MG PO (21:15)
[2024-11-06] MEDS: EFFEXOR XR 150 MG PO (21:26)
[2024-11-07] MEDS: ANCEF 10 IV ×4 (00:02→23:53)
[2024-11-07] MEDS: NSS 1000 IV (04:33)
[2024-11-07 07:15] VITALS: BP 119/68
[2024-11-07] MEDS: BYSTOLIC 5 MG PO (08:15)
[2024-11-07] MEDS: WELLBUTRIN XL (24 hour extended release) 300 MG PO (08:15)
[2024-11-07] MEDS: PROTONIX 40 MG PO (08:15)
[2024-11-07] MEDS: EFFEXOR XR 75 MG PO (08:16)
[2024-11-07] MEDS: NORVASC 2.5 MG PO (08:16)
--- NOTE | 2024-11-07 08:19 | W.PN.HOSP.TC ---
Today's Communication/Plan
-
abx for UTI and cellulitis.
check orthostatics
SNF on dc, pending culture finalization
Assessment / Plan
Assessment / Plan
79F with prolapsed uterus, anxiety/depression, HTN, HLD, pw/ fall, found to have hyponatremia, UTI, and cellulitis.
1. Frequent falls/generalized weakness/chronic knee pain
- PT/OT consulted rec SNF
- obtained orthostatic BPs, negative for orthostatic hypotension. Recieved IVF.
2. Acute hyponatremia likely hypovolemic
- Sodium 126 improved to 132 after IVF
- Obtain urine osmolality 325, urine sodium 41, serum osm 270
3. UTI
1+ LE, 60 WBC, UCx pending. Recent Klebsiella PNA 10/30 in ED, pt was given a single oral dose of keflex followed by a single oral dose of fosfomycin.
ancef as below
3. Bilateral lower extremity cellulitis
appears resolved
treating with IV Ancef
4. Anemia likely chronic
- Hemoglobin 8.3, stable
- No active bleed
- iron panel: iron 27, TIBC 333, %sat 8, ferritin 31.5. will start oral iron supplementation BID
5. Essential hypertension
- Norvasc, nebivolol
- Hold HCTZ due to Na. BP controlled.
6. GERD
- Pantoprazole
7. Hyperlipidemia
- atorvastatin
8. Depression/anxiety
- Bupropion, venlafaxine
- Ambien as needed for insomnia
7. Chronic pain
opioid dependece
on chronic narcotics, reviewed REPRESENTATIVE PERSONAL SERVICE and resumed
DVT prophylaxis
- Lovenox
Anticipated Discharge: 24 - 48 hours
Subjective/Interval History
-
Date of Service: November 07, 2024
Pt feels well says legs are better and asking when she will be released, asks me to speak to her daughter Luba.
Objective Data
-
Labs:
Laboratory Results
11/07/24 11/07/24
07:47 07:48
WBC Pending
Hgb Pending
Hct Pending
Plt Count Pending
Sodium Pending
Potassium Pending
Chloride Pending
Carbon Dioxide Pending
BUN Pending
Creatinine Pending
Glucose Pending
Calcium Pending
Vital Signs:
Vital Signs
Temp Pulse Resp BP Pulse Ox
98.4 F 76 18 143/70 96
11/06/24 23:37 11/06/24 23:37 11/06/24 23:37 11/06/24 23:37 11/06/24 23:37
I&O
11/06/24 11/07/24 11/08/24
06:59 06:59 06:59
Intake Total 1919
Balance 1919
Review of Systems
-
All other systems: Reviewed and negative
Physical Exam
-
General: No Apparent Distress
HEENT: Moist Mucous Membranes, Anicteric and PERRLA
Respiratory: Clear to Auscultation; Negative Wheezes, Rales or Rhonchi
Cardiac: Regular Rhythm and S1/S2; Negative Murmur, Rub or Gallop
GI: Soft, Nontender, Nondistended and Normal Bowel Sounds
Musculoskeletal: No Edema
Skin: Warm, Dry and Rash
Neuro: Awake and AO x 3
Hematologic / Lymphatic: No Lymphadenopathy
Psych: Calm
Data Reviewed
-
Ultrasound: Report Reviewed by me
Labs: Labs Reviewed by me
[2024-11-07] MEDS: FEOSOL 325 MG PO ×2 (09:07→20:21)
[2024-11-07] MEDS: NORCO 5/325 1 TABLET PO ×3 (09:07→21:53)
[2024-11-07 09:19] VITALS: BP 119/72; BP 131/68; BP 133/70; PULSE 66; PULSE 69; PULSE 70
[2024-11-07 09:37] LABS: Hematocrit 25.2 % (37.0-47.0); Hemoglobin 8.0 g/dL (12.0-16.0); Mean Corp Hgb Conc. 31.7 g/dL (33.0-37.0); Mean Corpuscular Volume 82.4 fL (81.0-99.0); Platelet Count 462 10^3/uL (130-400); Red Cell Dist. Width 14.7 % (11.5-14.5)
[2024-11-07 10:48] LABS: Blood Urea Nitrogen 14 mg/dl (7-17); Calcium 8.6 mg/dl (8.4-10.2); Carbon Dioxide 27 mmol/L (22-30); Chloride 100 mmol/L (98-107); Estimated Creatinine Clearance 61 ml/min; Glucose 75 mg/dl (70-99); Potassium 3.6 mmol/L (3.5-5.1); Sodium 132 mmol/L (135-145); eGFR > 60.00
--- NOTE | 2024-11-07 15:01 | CM ---
Patient understands that PT therapy is recommending SNF. Patient is refusing SNF at this time. Patient declined to have CM call her daughter as 'she is working at this time, but stated that she wanted to have [facility] therapy. Patient understands that
[facility] works with [facility] and wanted to talk to her daughter about options. CM will fax referral to Shawna at [facility] referral [phone]/ call [phone]. Patient may benefit from additional aides at home but did not want to discuss
additional services at this time. CM will continue to follow for discharge planning needs.
Plan; return to independent apartment with VN/pt/ot. referral to [facility] for pt/ot.
[2024-11-07 15:10] VITALS: BP 128/66
[2024-11-07] MEDS: LOVENOX 40 MG SC (17:29)
[2024-11-07] MEDS: NEURONTIN 600 MG PO (20:21)
[2024-11-07] MEDS: EFFEXOR XR 150 MG PO (20:21)
[2024-11-07] MEDS: LIPITOR 40 MG PO (20:21)
[2024-11-07] MEDS: AMBIEN 10 MG PO (21:53)
[2024-11-07 23:37] VITALS: BP 138/79
[2024-11-08] MEDS: BYSTOLIC 5 MG PO (07:29)
[2024-11-08] MEDS: ANCEF 10 IV (07:29)
[2024-11-08] MEDS: WELLBUTRIN XL (24 hour extended release) 300 MG PO (07:29)
[2024-11-08] MEDS: EFFEXOR XR 75 MG PO (07:29)
[2024-11-08] MEDS: PROTONIX 40 MG PO (07:29)
[2024-11-08] MEDS: NORCO 5/325 1 TABLET PO ×2 (07:29→13:13)
[2024-11-08] MEDS: NORVASC 2.5 MG PO (07:29)
[2024-11-08] MEDS: FEOSOL 325 MG PO (07:30)
[2024-11-08 08:02] VITALS: BP 144/84
[2024-11-08 08:35] LABS: Hematocrit 29.6 % (37.0-47.0); Hemoglobin 9.6 g/dL (12.0-16.0); Mean Corp Hgb Conc. 32.4 g/dL (33.0-37.0); Mean Corpuscular Volume 82.5 fL (81.0-99.0); Platelet Count 514 10^3/uL (130-400); Red Cell Dist. Width 14.6 % (11.5-14.5)
--- NOTE | 2024-11-08 08:44 | W.PN.HOSP.TC ---
Today's Communication/Plan
-
abx for UTI and cellulitis, change to oral on dc
rec SNF on dc but pt refusing
Assessment / Plan
Assessment / Plan
79F with prolapsed uterus, anxiety/depression, HTN, HLD, pw/ fall, found to have hyponatremia, UTI, and cellulitis.
1. Frequent falls/generalized weakness/chronic knee pain
- PT/OT consulted rec SNF. Pt refusing SNF and wants to go back to [facility]
- obtained orthostatic BPs, negative for orthostatic hypotension. Recieved IVF.
2. Acute hyponatremia likely hypovolemic
- Sodium 126 improved to 132 after IVF, stable.
D/c HCTZ entirely
- Obtain urine osmolality 325, urine sodium 41, serum osm 270
3. UTI
1+ LE, 60 WBC, UCx positive for Klebsiella R to amp/tetracycline. Recent Klebsiella PNA 10/30 in ED, pt was given a single oral dose of keflex followed by a single oral dose of fosfomycin.
ancef as below
change to tmp/sulfa on discharge
3. Bilateral lower extremity cellulitis
appears resolved
treating with IV Ancef --> TMP/SX on discharge
4. Anemia likely chronic
- Hemoglobin 9.6, stable
- No active bleed
- iron panel: iron 27, TIBC 333, %sat 8, ferritin 31.5. cont oral iron supplementation BID
5. Essential hypertension
- Norvasc, nebivolol
- d/c HCTZ due to Na. BP controlled.
6. GERD
- Pantoprazole
7. Hyperlipidemia
- atorvastatin
8. Depression/anxiety
- Bupropion, venlafaxine
- Ambien as needed for insomnia
7. Chronic pain
opioid dependece
on chronic narcotics, reviewed BICYCLE TECHNICIAN and resumed
DVT prophylaxis
- Lovenox
Anticipated Discharge: Within 24 hours
Subjective/Interval History
-
Date of Service: November 08, 2024
Objective Data
-
Labs:
Laboratory Results
11/08/24
07:43
WBC 9.3
Hgb 9.6 L
Hct 29.6 L
Plt Count 514 H
Sodium Pending
Potassium Pending
Chloride Pending
Carbon Dioxide Pending
BUN Pending
Creatinine Pending
Glucose Pending
Calcium Pending
Vital Signs:
Vital Signs
Temp Pulse Resp BP Pulse Ox
98.6 F 68 18 144/84 95
11/08/24 08:02 11/08/24 08:02 11/08/24 08:02 11/08/24 08:02 11/08/24 08:02
I&O
11/07/24 11/08/24 11/09/24
06:59 06:59 06:59
Intake Total 1919 1290 / 1290
Balance 1919 1290 / 1290
Review of Systems
-
All other systems: Reviewed and negative
Physical Exam
-
General: No Apparent Distress
HEENT: Moist Mucous Membranes, Anicteric and PERRLA
Respiratory: Clear to Auscultation; Negative Wheezes, Rales or Rhonchi
Cardiac: Regular Rhythm and S1/S2; Negative Murmur, Rub or Gallop
GI: Soft, Nontender, Nondistended and Normal Bowel Sounds
Musculoskeletal: No Edema
Skin: Warm, Dry and Rash
Neuro: Awake and AO x 3
Hematologic / Lymphatic: No Lymphadenopathy
Psych: Calm
Data Reviewed
-
Ultrasound: Report Reviewed by me
Labs: Labs Reviewed by me
[2024-11-08 09:25] LABS: Blood Urea Nitrogen 12 mg/dl (7-17); Calcium 8.9 mg/dl (8.4-10.2); Carbon Dioxide 28 mmol/L (22-30); Chloride 99 mmol/L (98-107); Estimated Creatinine Clearance 61 ml/min; Glucose 89 mg/dl (70-99); Potassium 3.7 mmol/L (3.5-5.1); Sodium 134 mmol/L (135-145); eGFR > 60.00
[2024-11-08 13:57] VITALS: BP 108/65; PULSE 62
--- NOTE | 2024-11-08 14:56 | W.DCSUMMARY ---
Discharge Summary
Discharge Data
Date of Admission: 11/06/24
Date of Discharge: 11/08/24
Total time spent discharging patient (in min): 35
-
Pending Results: No
Hospital Course
Attending physician on day of discharge:
Siomara Gandhi MD
Admission diagnosis:
Discharge diagnosis:
Secondary diagnoses:
Consultations:
None
Procedures:
None
Hospital course:
79F admitted for recurrent falls, found to have UTI and possibly lower extremity cellulitis, and hyponatremia. She was treated with IV antibiotics. Urine culture was positive for Klebsiella pneumoniae and antibiotics were changed to oral. Her
HCTZ was discontinued with improvement in her sodium. Her gabapentin and venlafaxine doses were also lowered to help improve the sodium. She needs to follow-up with psychiatrist to continue to slowly wean down the venlafaxine since this can have
an adverse effect on the sodium level. She was seen by PT who initially recommended SNF, but she improved enough to go home with home health.
Physical exam on discharge:
Gen: NAD
HEENT: PERRLA, EOMI, MMM, neck supple
Cards: RRR, no M/G/R
Resp: Lungs CTAB, no W/R/R
GI: soft, NT/ND/NABS
MSK: No edema
Skin: warm and dry, no rash, ulcer or lesions
Heme: No LAD
Psych: Calm
Neuro: AAOx3
Discharge disposition:
Assisted living with home PT/OT
Discharge Plan
-
Patient Disposition: Assisted Living
Discharge Diagnosis/Procedures: falls, UTI
Diet: Regular
Activity: With assistance
Referrals:
Psychiatry [Provider Group]
Referral Note: adjustment of depression medication
Beni Mcneil MD [Family Provider, [facility]]
Additional Discharge Medication Instructions: due to UTI, placed on Bactrim DS for 7 days. Due to hyponatremia (low sodium) and falls, stopped hydrochlorothiazide, decreased gabapentin, and decreased venlafaxine. Please follow up with a psychiatrist
to adjust your depression medications to balance symptom relief and side effects and medication interactions.
Prescriptions:
New
ferrous sulfate [FeroSul] 325 mg (65 mg iron) Tablet
325 mg PO BID Qty: 60 0RF
venlafaxine 37.5 mg capsule,extended release 24hr
112.5 mg PO HS 30 Days Qty: 90 0RF
gabapentin 300 mg Capsule
300 mg PO HS Qty: 30 0RF
sulfamethoxazole-trimethoprim [Bactrim DS] 800-160 mg tablet
1 tab PO BID Qty: 14 0RF
Continued
atorvastatin 40 mg tablet
40 mg PO HS
venlafaxine 75 mg capsule,extended release 24hr
75 mg PO DAILY
amlodipine 2.5 mg tablet
2.5 mg PO DAILY
pantoprazole 40 mg tablet,delayed release (DR/EC)
40 mg PO DAILY
zolpidem 10 mg tablet
10 mg PO HS PRN (Reason: sleep)
bupropion HCl 300 mg tablet extended release 24 hr
300 mg PO DAILY
nebivolol 5 mg tablet
5 mg PO DAILY
Hydrocodone Acetaminophen 10 mg
QIDPRN PRN (Reason: pain)
Discontinued
venlafaxine 150 mg capsule,extended release 24hr
150 mg PO DAILY
hydrochlorothiazide 12.5 mg capsule
12.5 mg PO DAILY
gabapentin 300 mg capsule
600 mg PO HS
Discharge Orders:
Discharge Patient (As Directed); Ordered 11/08/24
Ordered By: Siomara Gandhi
Discharge Date and Time
Print Language: PARAGUAYAN
--- NOTE | 2024-11-08 15:40 | CM ---
Addendum entered by Silvia Carrizales 11/08/24 16:55:
[facility]

Original Note:
Plan: Discharge to home @ [facility] today [facility]; updated clinicals and home health orders sent via [facility] as requested
Daughter will be coming between 5 and 6 PM to transport home; informed nursing that daughter would like discharge instructions/medication reviewed with her when she arrives
[facility] notified of discharge plan
[2024-11-08 15:41] VITALS: BP 147/75
== END 2024-11-08 17:31 | disposition home health service (06) | DRG 603 ==
LOC: 4 EAST ACU 16:51
PROVIDERS: Emergency Medicine; Registered Nurse; ADMITTING PHYSICIAN Internal Medicine; ATTENDING PHYSICIAN Internal Medicine; EMERGENCY PHYSICIAN Emergency Medicine; FAMILY PHYSICIAN Family Medicine
DX: L03.115 Cellulitis of right lower limb (principal); N39.0 Urinary tract infection, site not specified; E87.1 Hypo-osmolality and hyponatremia; F11.20 Opioid dependence, uncomplicated; L03.116 Cellulitis of left lower limb; F32.A Depression, unspecified; F41.9 Anxiety disorder, unspecified; Z91.81 History of falling; B96.1 Klebsiella pneumoniae [K. pneumoniae] as the cause of diseases classified elsewhere; Z87.891 Personal history of nicotine dependence; E78.5 Hyperlipidemia, unspecified; I10 Essential (primary) hypertension; Z88.0 Allergy status to penicillin; D64.9 Anemia, unspecified; K21.9 Gastro-esophageal reflux disease without esophagitis; G47.00 Insomnia, unspecified
CPT/HCPCS: 80048; 80053; 81003; 81015; 82607; 82728; 82746; 83540; 83550; 83930; 83935; 84300; 84439; 84443; 85025; 85027; 87077; 87086; 87186; 93970; 96374; 97116; 97162; 97167; 97535; 99284